=== PATIENT | female | born 1990 | race Caucasian/White ===

== ENCOUNTER 2019-02-01 16:29 | Day surgery (SDC) | payer BC, OTHER ==
[2019-02-01 17:39] VITALS: BMI 28.3
[2019-02-01] MEDS ORDERED: Betamet Acet/Betamet Na Ph 30 MG/5 ML VIAL ONE (18:11)
[2019-02-01] MEDS ORDERED: Betamet Acet/Betamet Na Ph 30 MG/5 ML VIAL IM SCH (18:45)
--- NOTE | 2019-02-01 19:25 | PDOC.LDHP ---
Labor and Delivery H&P Chief complaint: other (UUGR here for dopplers per Dr Olvera) HPI: 28 yo x 1 in past one SAB1, now at 35 weesk 6 days, EDC 03/02/19, here for IUGR DX per Wade at 3%. Here for dopplers. She does not smoke, has good FM , no VB. No fevers. No LOF review of Systems: complete ROS completed and neg as per HPI Current gestational age (weeks): 35 (6 days) Grav: 3 Para: 1 OB History Details: Term x 1 Current complications: IUGR (DX recently) Abnormal US findings: Yes (3rd percentile) Current medications: pre- vitamins Previous surgical history: other (T&A as child) Allergies/Adverse Reactions: Allergies Allergy/AdvReac Type Severity Reaction Status Date / Time No Known Allergies Allergy Verified 02/01/19 17:35 - Physical Exam Vital signs reviewed and normal: yes (114/69 afebrile 89) General: NAD Heart: RRR Lungs: CTAB Abdomen: gravid Extremeties: no edema FHT: category 1, variability present [place] contractions every: none - Assessment 35 weeks 6 days, isolated IUGR at 3%. I was present during sono by department in L&D. EFW 2114grams which is 3%. Normal diastolic flow noted. Largest fluid pocket was 2.7; JUSTEN 6.8. Vertex. - Plan Plan: observation in L&D (I discussed the ACOG bulletin with her. With normal diastolic flow...delivery may be considered at 38 weeks (37 at earliest). If absent flow, needs delivery over 34 weekjs. Here, there is normal diastolic flow. Steroids given now X 1, and we will monitor until 1999 (1 hour). NST looks good already. Return tomorrow for NST and second steroid at 1999. [place] on Wednesday. Reference: ACOG PB on IUGR)
--- NOTE | 2019-02-01 19:31 | ULT ---
EXAM: OB ultrasound and umbilical artery ultrasound COMPARISON: None HISTORY: Possible intrauterine growth retardation TECHNIQUE: Multiplanar grayscale and color Doppler images were obtained in a transabdominal ult rasound. Spectral analysis of the Doppler waveforms of the umbilical artery were performed. FINDINGS: There is a single live intrauterine with heart rate of 127 bpm. Estimated weight is 2114 g. Average age of the fetus based off today's examination is 33 weeks 1 day. BPD 8.25 cm -- 33 weeks 1 day HC 29.78 cm -- 33 weeks 0 days AC 28.96 cm -- 33 weeks 0 days FL 6.45 cm -- 33 weeks 2 days The placenta is fundal in location without focal abnormality. JUSTEN is 6.8 cm which is low. The cervix could not be seen secondary to the head in the pelvis. There is no evidence of placenta previa. The umbilical artery demonstrates continuous diastolic flow with normal systolic to diastolic ratios. IMPRESSION: 1. Single live intrauterine with estimated age of 33 weeks 1 day. 2. Oligohydramnios 3. Unremarkable umbilical artery ultrasound
== END 2019-02-01 20:50 | disposition home or self-care (01) ==
LOC: L&D/OP 16:29
PROVIDERS: ATTEND Obstetrics & Gynecology
DX: O36.5930 Maternal care for other known or suspected poor fetal growth, third trimester, not applicable or unspecified (principal); O41.03X0 Oligohydramnios, third trimester, not applicable or unspecified; Z87.59 Personal history of other complications of pregnancy, childbirth and the puerperium; Z3A.35 35 weeks gestation of pregnancy
CPT/HCPCS: 76700; 76815; 96372; 99282; J0702

== ENCOUNTER 2019-02-02 18:15 | Day surgery (SDC) | payer BC, OTHER ==
[2019-02-02 18:39] VITALS: BMI 28.3
[2019-02-02] MEDS ORDERED: Betamet Acet/Betamet Na Ph 30 MG/5 ML VIAL IM SCH (19:00)
--- NOTE | 2019-02-02 21:39 | SS ---
DATE OF ADMISSION: 02/02/2019 DATE OF DISCHARGE: 02/02/2019 REGULAR PHYSICIAN: Jabari lOvera MD EVALUATING PHYSICIAN: Philipp Bryant MD CHIEF COMPLAINT: Here for second betamethasone injection. HISTORY OF PRESENT ILLNESS: Ms. Skelton is a 28-year-old white G3, P1, AB1 with an estimated date of confinement of 03/02/2019, who presents for a second dose of betamethasone. This patient has been evaluated previously and has severe IUGR, but has normal Doppler studies and normal fluid. She denies ruptured membranes, vaginal bleeding, or decreased movement. PAST OBSTETRICAL HISTORY: Includes one vaginal delivery and one miscarriage. PAST MEDICAL HISTORY: None. PAST SURGICAL HISTORY: Tonsillectomy and adenoidectomy. CURRENT MEDICATIONS: vitamins. ALLERGIES: NO KNOWN ALLERGIES. SOCIAL HISTORY: She smokes cigarettes in the very early first trimester, but states that she has not smoked since that time. She denies alcohol or drug use. FAMILY HISTORY: Unremarkable. REVIEW OF SYSTEMS: Denies nausea, vomiting, fever, chills, ruptured membranes, or vaginal bleeding. PHYSICAL EXAMINATION: VITAL SIGNS: Vital signs are stable and she is afebrile. GENERAL: She is very pleasant with no complaints. ABDOMEN: Soft, nontender, and gravid. PELVIC: Deferred. heart rate tracing is stable with no deceleration and spontaneous accelerations seen. No uterine contractions are noted. ASSESSMENT: 1. Thirty-six week intrauterine . 2. Second dose of steroids given for lung maturity tonight. PLAN: The patient will be dismissed to home. She states she has an appointment with Dr. Olvera on Wednesday to review her situation. I agree with Dr. Zambrano that consideration should be made of delivery at 37 weeks. The patient was told to watch for movements and to use kick counts at home. Job ID: [id number]
== END 2019-02-02 19:05 | disposition home or self-care (01) ==
LOC: L&D/OP 18:15
PROVIDERS: ATTEND Obstetrics & Gynecology
DX: Z29.8 Encounter for other specified prophylactic measures (principal); Z87.891 Personal history of nicotine dependence; Z3A.36 36 weeks gestation of pregnancy
CPT/HCPCS: 96372; 99281

== ENCOUNTER 2019-02-08 09:30 | Inpatient (IN) | payer BC, OTHER ==
[2019-02-08 11:07] VITALS: BMI 29.5
[2019-02-08] MEDS ORDERED: Ibuprofen 800 MG TAB PO PRN (18:33)
[2019-02-08] MEDS ORDERED: NS / Oxytocin 40 units/1000ml 1,000 ML IV PRN (18:33)
[2019-02-08] MEDS ORDERED: Butorphanol Tartrate 1 MG/ML VIAL SLOW IVP PRN (18:33)
[2019-02-08] MEDS ORDERED: HYDROcodone/Acetaminophen 5/325 mg Tablet PO PRN ×2 (18:33)
[2019-02-08] MEDS ORDERED: Diphenoxylate HCl/Atropine Tablet PO PRN ×2 (18:33)
[2019-02-08] MEDS ORDERED: hydrALAZINE 20 MG/ML VIAL SLOW IVP PRN (18:33)
[2019-02-08] MEDS ORDERED: Zolpidem Tartrate 5 MG TAB PO PRN (18:33)
[2019-02-08] MEDS ORDERED: Misoprostol 200 MCG TAB PR PRN (18:33)
[2019-02-08] MEDS ORDERED: Ondansetron PF 4 MG/2 ML Vial IVP PRN (18:33)
[2019-02-08] MEDS ORDERED: Acetaminophen 500 MG TAB PO PRN (18:33)
[2019-02-08] MEDS ORDERED: Promethazine HCl 25 MG/ML VIAL IM PRN (18:33)
[2019-02-08] MEDS ORDERED: Carboprost 250 MCG/ML AMP IM PRN (18:33)
[2019-02-08] MEDS ORDERED: Lidocaine 1% (PF) 30 ML VIAL SC PRN (18:33)
[2019-02-08] MEDS ORDERED: Methylergonovine 0.2 MG/ML VIAL IM PRN (18:33)
[2019-02-08] MEDS ORDERED: NS w/ Oxytocin 10 units 500 ML IV SCH ×2 (18:45)
[2019-02-08 18:58] LABS: Hemoglobin 11.6 g/dL (12.0-16.0); Mean Corpuscular HGB CONC 31.7 g/dL (32.0-36.0); Mean Corpuscular Hemoglobin 27.8 pg (27.0-31.0); Mean Corpuscular Volume 87.9 fL (78.0-98.0); Mean Platelet Volume 8.5 fL (7.4-10.4); Platelet Count 365 thou/uL (130-400); RBC Distribution Width 15.5 % (11.5-14.5); Red Blood Cell (RBC) Count 4.18 mill/uL (4.20-5.40); White Blood Cell (WBC) Count 13.1 thou/uL (4.8-10.8)
[2019-02-08 19:36] LABS: Syphilis Antibody Nonreactive (Nonreactive); Syphilis Antibody Index 0.05 S/CO (<1.00 Non-Reactive)
[2019-02-08 19:37] LABS: HBSAg Index 0.26 S/CO (0-0.99); Hep B Surf Ag Non-Reactive S/CO (NonReactive)
[2019-02-08] MEDS ORDERED: Penicillin G 2.5 MILL.units 2.5 MILL.UNITS in Premix Bag 1 BAG IVPB SCH (20:00)
[2019-02-08] MEDS ORDERED: Penicillin G Potassium 5 MILL.UNITS in Sodium Chloride 0.9% 100 ML IVPB SCH (20:00)
[2019-02-08] MEDS: Misoprostol 100 MCG TAB VAG SCH ×2 (20:14→23:27)
[2019-02-08] MEDS: Lactated Ringer's 1,000 ML IV SCH (22:09)
[2019-02-09] MEDS ORDERED: Terbutaline Sulfate 1 MG/ML VIAL ONE ×2 (01:07→02:54)
[2019-02-09] MEDS: Lactated Ringer's 1,000 ML IV SCH (03:31)
[2019-02-09] MEDS ORDERED: Fentanyl 4 mcg/Bup 0.1% Cadd 100 ML ONE (03:54)
[2019-02-09] MEDS ORDERED: Penicillin G Potassium 5 MILL.UNITS VIAL ONE (04:08)
[2019-02-09] MEDS ORDERED: Bupivacaine 0.25% HCL 30 ML VIAL ONE (04:17)
[2019-02-09] MEDS ORDERED: Lidocaine 1.5%/Epinephrine 1:200,000 5 ML AMPUL IJ ONE (04:18)
[2019-02-09] MEDS ORDERED: Lactated Ringer's 500 ML IV PRN (04:43)
[2019-02-09] MEDS ORDERED: Promethazine HCl 25 MG/ML VIAL IM PRN ×2 (04:43→16:33)
[2019-02-09] MEDS ORDERED: diphenhydrAMINE 50 MG/ML VIAL IVP PRN (04:43)
[2019-02-09] MEDS ORDERED: ePHEDrine/0.9% NaCl/PF SYRINGE 50 mg/10 ml SLOW IVP PRN (04:43)
[2019-02-09] MEDS ORDERED: Naloxone HCl 0.4 mg/ml Vial IVP PRN ×2 (04:43)
[2019-02-09] MEDS ORDERED: Acetaminophen 325 MG TAB PO PRN (04:43)
[2019-02-09] MEDS ORDERED: Ondansetron PF 4 MG/2 ML Vial IVP PRN ×2 (04:43→16:33)
[2019-02-09] MEDS ORDERED: Communication Order-Pharmacy FS SCH (04:45)
[2019-02-09] MEDS ORDERED: Fentanyl 4 mcg/Bupivacaine 0.1% Cassette 100 ML EPIDURAL SCH (04:45)
[2019-02-09] MEDS ORDERED: Zolpidem Tartrate 5 MG TAB PO PRN (16:33)
[2019-02-09] MEDS ORDERED: HYDROcodone/Acetaminophen 5/325 mg Tablet PO PRN ×2 (16:33)
[2019-02-09] MEDS ORDERED: Methylergonovine 0.2 MG/ML VIAL IM PRN (16:33)
[2019-02-09] MEDS ORDERED: diphenhydrAMINE 25 MG CAP PO PRN (16:33)
[2019-02-09] MEDS ORDERED: Measles/Mumps/Rubella 10 MCG/0.5 ML VIAL SC ONE (16:33)
[2019-02-09] MEDS ORDERED: Lanolin Ointment 7 GM TUBE TOP PRN (16:33)
[2019-02-09] MEDS ORDERED: Varicella virus, LIVE 0.5 ML VIAL SC ONE (16:33)
[2019-02-09] MEDS ORDERED: Bisacodyl 10 MG SUPP PR PRN (16:33)
[2019-02-09] MEDS ORDERED: Benzocaine-Menthol 82.5 ML CAN TOP PRN (16:33)
[2019-02-09] MEDS ORDERED: Adacel (T-DAP) 0.5 ML SYRINGE IM ONE (16:33)
[2019-02-09] MEDS ORDERED: hydrALAZINE 20 MG/ML VIAL SLOW IVP PRN (16:33)
[2019-02-09] MEDS ORDERED: Misoprostol 200 MCG TAB VAG PRN (16:33)
[2019-02-09] MEDS ORDERED: Preparation H Ointment 28 GM TUBE PR PRN (16:33)
[2019-02-09] MEDS ORDERED: NS / Oxytocin 40 units/1000ml 1,000 ML IV SCH (16:33)
[2019-02-09] MEDS ORDERED: Milk Of Magnesia 30 ML UDCUP PO PRN (16:33)
[2019-02-09] MEDS ORDERED: Bupivacaine/Epinephrine 0.25% 30 ML VIAL ONE (18:00)
[2019-02-10] MEDS: Ibuprofen 800 MG TAB PO SCH ×3 (06:45→22:52)
[2019-02-10] MEDS: Docusate Calcium (SURFAK) 240 MG CAP PO SCH ×3 (06:45→22:51)
[2019-02-10] MEDS: Prenatal Vitamin 1 TAB PO SCH (10:27)
[2019-02-10] MEDS: Ferrous Sulfate 325 MG TAB PO SCH ×2 (10:28→18:09)
--- NOTE | 2019-02-10 14:32 | PDOC.PP ---
Post Progress Note Post Day #: 1 PO intake tolerated: yes Flatus: yes Ambulation: yes Vital Signs (12 hours) Temp Pulse Resp BP Pulse Ox 02/10/19 11:28 97.7 F 84 16 106/68 02/10/19 08:40 94 L 02/10/19 08:00 98.3 F 84 13 114/64 94 L Weight Weight 183 lb 3.2 oz - Physical Examination General: NAD Cardiovascular: no m/r/g, RRR Respiratory: clear to auscultation bilaterally, non-labored breathing Abdominal: + bowel sounds, lochia, no distention Extremities: negative homans (B) Neurological: no gross focal deficits Psychiatric: A&Ox3, normal affect (DC tomorow to boarding) Result Diagrams: 02/08/19 18:20 Additional Labs: Post Labs Blood Type B POSITIVE 02/08/19 19:11 Hep Bs Antigen Non-Reactive S/CO (NonReactive) 02/08/19 18:20
--- NOTE | 2019-02-10 14:38 | PDOC.LDHP ---
Labor and Delivery H&P HPI: 28 y/o at 36 6/7 weeks being admitted for term induction of labor for severe IUGR and Oligohydramnios, with significantly decreased movement. Current gestational age (weeks): 36 Due date: 03/02/19 Grav: 3 Para: 1 Current complications: none Abnormal US findings: Yes (SEE HPI) Current medications: pre- vitamins Previous surgical history: other Allergies/Adverse Reactions: Allergies Allergy/AdvReac Type Severity Reaction Status Date / Time No Known Allergies Allergy Verified 02/08/19 11:00 Social history: none - Physical Exam Vital signs reviewed and normal: yes General: NAD Heart: RRR Lungs: CTAB Abdomen: NTTP Extremeties: no edema FHT: category 1 - Vaginal Exam cm dilated: 1 - Assessment L&D Assessment: medically indicated induction - Plan Plan: admit to L&D, cervical ripening
[2019-02-10 23:55] VITALS: BP 110/67; TEMP 98.1
[2019-02-11] MEDS: Prenatal Vitamin 1 TAB PO SCH (11:04)
[2019-02-11] MEDS: Ibuprofen 800 MG TAB PO SCH (11:05)
--- NOTE | 2019-02-13 14:35 | DN ---
DATE OF PROCEDURE: TIME OF SERVICE: At 0542 [place] Daylight Savings Time. PREOPERATIVE DIAGNOSIS: Intrauterine at 37 weeks 0 days with a medical induction of labor for a baby with severe IUGR, oligohydramnios, decreased movement. POSTOPERATIVE DIAGNOSIS: Intrauterine at 37 weeks 0 days with a medical induction of labor for a baby with severe IUGR, oligohydramnios, decreased movement. PROCEDURE: Spontaneous vaginal delivery over a small first-degree laceration of the perineum. FINDINGS: Viable female , weighing 1811 g or 4 pounds 0 ounces, Apgars 8 and 9. QUANTITATIVE BLOOD LOSS: 10 mL. COMPLICATIONS: None. PROCEDURE IN DETAIL: The patient presented to [facility] where she was admitted to the labor and delivery service. The patient underwent a normal and uneventful labor with normal cervical dilatation until she was found to be completely dilated. She was then allowed to push and was able to bring the baby down and delivered the baby in a vertex presentation without difficulties. Once the head delivered in occiput anterior position, the shoulders followed spontaneously along with the rest of the baby's body. Once out the baby's mouth and nose were bulb suctioned. The cord was clamped and cut and baby was handed to waiting attendants. Cord blood was collected. Gentle fundal massage was performed and the placenta delivered intact without problems. Hemostasis was assured. Quantitative blood loss was calculated. Inspection of the cervix, vaginal vault, and perineum did not reveal any lacerations needing suturing. Once again, hemostasis was within normal limits and the patient was allowed to recover in the labor and delivery room. Baby went to nursery. Job ID: [id number]
== END 2019-02-11 11:20 | disposition home or self-care (01) | DRG 806 ==
LOC: MERGE 10:25 → L&D 10:25 → 3SW 02-09 18:35
PROVIDERS: ADMIT Obstetrics & Gynecology; ATTEND Obstetrics & Gynecology
PROC: 10E0XZZ Delivery of Products of Conception, External Approach (ICD-10-PCS; principal; 2019-02-10)
PROC: 0HQ9XZZ Repair Perineum Skin, External Approach (ICD-10-PCS; 2019-02-10)
DX: O36.5930 Maternal care for other known or suspected poor fetal growth, third trimester, not applicable or unspecified (principal); O41.03X0 Oligohydramnios, third trimester, not applicable or unspecified; Z37.0 Single live birth; O76 Abnormality in fetal heart rate and rhythm complicating labor and delivery; O70.0 First degree perineal laceration during delivery; Z3A.37 37 weeks gestation of pregnancy
CPT/HCPCS: 36415; 51702; 85027; 86780; 86850; 86900; 86901; 87340; 88307; 90707; 90715; 90716; J2540; J3105; J3490; S0020